=== PATIENT | male | born 1980 | race Caucasian/White ===

== ENCOUNTER 2016-10-24 23:10 | Emergency (ER) | payer BC ==
[~2016-10-24 23:10] MED LIST: AMLODIPINE BESY10 MG PO; MOTRIN600 M2 PO; NO MEDICATIONS; NORVASC10 MG PO; ZOFRAN ODT4 MG PO; ZOFRAN8 MG PO
== END 2016-10-24 23:28 | disposition home or self-care (01) ==
LOC: SED 23:10
DX: I10 Essential (primary) hypertension (principal); Z98.890 Other specified postprocedural states
CPT/HCPCS: 99283

== ENCOUNTER 2017-02-01 21:13 | Emergency (ER) | payer BC ==
[~2017-02-01] VITALS: Ht 175.3 cm; Wt 72.6 kg
[2017-02-01] MEDS ORDERED: HYDROCODON-ACE1 EAC7 PO (21:36)
[2017-02-01] MEDS ORDERED: AMLODIPINE BESYL5 MG PO (21:36)
== END 2017-02-01 22:47 | disposition home or self-care (01) ==
LOC: SED 21:13
DX: J02.9 Acute pharyngitis, unspecified (principal); I10 Essential (primary) hypertension
CPT/HCPCS: 87651; 99284